=== PATIENT | female | born 2000 | race Caucasian/White ===

== ENCOUNTER → 2019-10-27 | Outpatient (REF) | payer OTHER | LOC: M SFHCLERA 12:22 | PROVIDERS: ATTEND Nurse Practitioner Family | DX: J00 Acute nasopharyngitis [common cold] (principal) ==

== ENCOUNTER → 2020-03-04 | Outpatient (CLI) | payer OTHER | LOC: M LABSMTC 08:52 | PROVIDERS: ATTEND Family Medicine | DX: Z03.818 Encounter for observation for suspected exposure to other biological agents ruled out (principal); Z11.59 Encounter for screening for other viral diseases ==

== ENCOUNTER → 2020-07-08 | Outpatient (REF) | payer OTHER | LOC: M LAB REF 18:05 | PROVIDERS: ATTEND Physician Assistant Medical | DX: Z32.00 Encounter for pregnancy test, result unknown (principal) ==

== ENCOUNTER 2021-03-17 15:31 | Outpatient (CLI) | payer OTHER ==
[~2021-03-17] VITALS: Ht 162.6 cm; Wt 91.0 kg
[2021-03-17 15:50] VITALS: BP 128/80
--- NOTE | 2021-03-17 16:32 | IPNPDOC ---
Text Note Date of Service The patient was seen on 03/17/21. NOTE 03/17/21 1630 hours 19 yo EDC BY US at 6.5 weeks edc 03/20/21 39.4 had contractions 10 minutes apart palpate mild . Patient gbs positive. risk gbs positive heart murmur anxiety plan monitor, pelvic exam vertex 50% effaced posterior 1-2 cm -3 station Patient not in active labor reviewed precautions keep appointment ft drum ob return if conditions change . discharged undelivered VS,Fishbone, I+O VS, oJsebone, I+O Vital Signs Date Time Temp Pulse Resp B/P (MAP) Pulse Ox O2 Delivery O2 Flow Rate FiO2 03/17/21 15:50 99.1 100 18 128/80 (96) 98 Room Air Colin Cutler MD Mar 17, 2021 16:32
[2021-03-17] MEDS ORDERED: TUMS500C PO (16:52)
[2021-03-17] MEDS ORDERED: PRENTAB9 PO (16:52)
== END 2021-03-17 16:35 | disposition home or self-care (01) ==
LOC: M LDO 15:31
PROVIDERS: ATTEND Obstetrics & Gynecology
DX: O47.1 False labor at or after 37 completed weeks of gestation (principal); Z3A.39 39 weeks gestation of pregnancy; O99.820 Streptococcus B carrier state complicating pregnancy; O99.343 Other mental disorders complicating pregnancy, third trimester; F41.9 Anxiety disorder, unspecified; O26.893 Other specified pregnancy related conditions, third trimester; R01.1 Cardiac murmur, unspecified; Z88.0 Allergy status to penicillin; Z79.899 Other long term (current) drug therapy
CPT/HCPCS: 59025; G0378; G0463

== ENCOUNTER 2021-03-17 19:30 | Inpatient (IN) | payer OTHER ==
[~2021-03-17] VITALS: Ht 162.6 cm; Wt 91.3 kg
[~2021-03-17 19:30] MED LIST: CLINDAMYCIN 900 MG in IV 1 EA IV SCH; PRENTAB9 PO; TUMS500C PO
[2021-03-17 19:54] VITALS: BP 138/82
[2021-03-17] MEDS ORDERED: LR 1,000 ML IV SCH ×2 (20:50→23:55)
[2021-03-17] MEDS ORDERED: PROMETHAZINE INJ 25 MG/ML VIAL (J2550) IV ONE (21:00)
[2021-03-17] MEDS ORDERED: BUTORPHANOL 2 MG/ML INJ (J0595) IV ONE (21:00)
[2021-03-17 21:19] VITALS: BP 118/72
[2021-03-17 21:32] LABS: HEMATOCRIT 35.2 % (36.0-47.0); HEMOGLOBIN 11.7 g/dl (12.0-15.5); MEAN CORPUSCULAR HEMOGLOBIN 28.5 pg (27.0-33.0); MEAN CORPUSCULAR HGB CONC 33.2 g/dl (32.0-36.5); MEAN CORPUSCULAR VOLUME 85.9 fl (80.0-96.0); PLATELET COUNT, AUTOMATED 317 10^3/uL (150-450); WHITE BLOOD COUNT 14.3 10^3/uL (4.0-10.0)
[2021-03-17] MEDS ORDERED: LACTATED RINGER'S 1000 ML IV ONE (23:55)
[2021-03-18] VITALS (37 sets, daily range): BP systolic 97–135; BP diastolic 59–84
--- NOTE | 2021-03-18 01:08 | HPEPDOC ---
Obstetrical History & Physical General Date of Admission Primary Care Physician: Colin Cutler MD History of Present Illness CONTRACTIONS Q 4 MINUTES MODERATE INTENSITY NO VAGINAL LOSS NO BLEEDING Chief Complaint: Contractions, term Information Provided By: Patient Age: 20 : 1 Term: 0 Pre-term: 0 Abortions: 0 Livin Care Care: Good Care Number of Visits: 8 Dating Final EDC: Mar 20, 2021 Final EDC for Daily Update: Mar 20, 2021 Final EDC by: LMP LMP: Jun 13, 2020 1st Trimester Date: Jul 31, 2020 Weeks + Days: 6.5 Estimated Date of Confinement: Mar 20, 2021 EGA at Admission: 39.3 Antepartum Course Diagnos(e)s CONTRACTIONS MODERATE INTENSITY. 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 BREAST: . ABDOMEN: Gravid and non-tender to touch. FETUS: Is vertex (VTX) by sterile vaginal examination (SVE), fetus is vertex (VTX) by Yonathan. HEART RATE: Regular rate and rhythm. LUNGS: Clear to auscultation (CTA). EXTREMITIES: No edema. No clonus. Deep tendon reflexes (DTRs) + . Other physical findings NORMOCEPHALIC CHEST CLEAR BILATERAL NO WHEEZES NO RHONCHI HEART REGULAR RHYTHM NO MURMUR NO DYSPNEA NO ORTHOPNEA NO SOB. NO RASHES LESIONS PARIETIS NO ARTHRALGIA MYALGIA NO JOINT PAIN NO URGENCY INCONTINENCE FREQUENCY NO DIARRHEA CONSTIPATION Vital Signs/I&O Vital Signs Date Time Temp Pulse Resp B/P (MAP) Pulse Ox O2 Delivery O2 Flow Rate FiO2 03/17/21 21:19 78 118/72 (87) 03/17/21 21:04 18 Laboratory Data 24H LABS Laboratory Tests 2 03/17/21 20:16: Nucleated Red Blood Cells % (auto) 0.0 CBC/BMP Laboratory Tests 03/17/21 20:16 Pertinent Laboratoy Data Blood Type: O+ RBC Antibody Screen: Negative HIV: Negative Hepatitis B: Negative Rapid Plasma Reagin: Nonreactive Rubella: Immune Varicella: Immune Chlamydia/Gonorrhea: Negative Group B Streptococcus: Positive (URINE) Cystic Fibrosis: Negative Anatomy Ultrasound Ultrasound Date: January 02, 2021 Placenta Location: Anterior Normal Anatomy: Yes Estimated Weight (grams): 1232 Other Ultrasounds BILATERAL HYDRONEPHROSIS EVALUATE KIDNEYS AFTER DELIVERY Steroid Therapy Steroid Therapy: No Vaginal Examination Dilation: 2cm Effacement: 60% Station: -3 Cervical Consistency: Soft Cervical Position: Posterior Presentation: Cephalic presentation Assessment Heart Rate (FHR): 140 Variability: Moderate Accelerations: Positive Decelerations: None Tocometer Contractions: Yes Frequency: regular, every 1-5 min. Duration: less than 60 seconds Strength: palpated as moderate Assessment/Plan Assessment 20 year-old (G1 para (P 0 at 39.4 weeks by 6.5 -week ultrasound. Presents to Labor and Delivery (L&D) . Plan Admit and orient. 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 Diet: CLEAR FLUIDS Group B Streptococcus (GBS) POSITIVE ANTIBIOTICS STARTED . Labs and intravenous (IV) per unit protocol. Counseled on Pitocin FOR AUGMENTATION Lactated Ringers (LR): Bolus 800 PRE EPIDURAL mL, then at 125 mL/hr. Anticipate [normal spontaneous delivery ()]. C-S as appropriate. Labor and Delivery Counseling REVIEWED PLAN OF CARE WHEN APPROPRIATE EPIDURAL ANTIBIOTICS FOR GBS STARTED REASSESSMENT IN 4 HOURS . REVIEWED DELIVERY COUNSELING . DELIVERY ANTICIPATED THROUGH VAGINA WITH POSSIBLE ASSISTANCE FORCEPS OR VACUUM DEVICES NEEDED FOR MATERNAL OR INDICATIONS. THESE DEVICES CAN ASSIST FOR VAGINAL DELIVERY WHEN PUSHING IS INEFFECTIVE AND CANNOT ACHIEVE DELIVERY ON OWN. ALSO IN EMERGENCY CONDITIONS WHEN BABY NEEDS IMMEDIATE DELIVERY. MEDICATIONS NEEDED TO AUGMENT LABOR MAY BE USED AN EPISIOTOMY MAY BE REQUIRED TO ACHIEVE VAGINAL DELIVERY THESE WILL BE REPAIRED ALSO REPAIR TO OTHER LACERATIONS TO CERVIX SPHINCTER BLADDER OR BOWEL. IN CASES WHERE EMERGENCY IS NEEDED FOR OR MATERNAL INDICATIONS PROVIDER WILL EXPLAIN AND IF TIME HAVE YOU SIGN CONSENT. SOME CASES IS SAFER FOR BABY AND MOTHER. RISK OF VAGINAL DELIVERY INCLUDE HEMORRHAGE INFECTION PERFORATION EMERGENCY BLOOD TR ANSFUSION REMOTE HYSTERECTOMY OR LIFE THREATENING BLEEDING . USE OF MEDICATION INCREASE RISK OF UTERINE RUPTURE HEMORRHAGE HEART RATE ABNORMALITIES TACHYSYSTOLE . USE OF VACUUM OR FORCEPS INCREASE RISK OF BRUISING HEMATOMA SCRATCHES INTRACRANIAL BLEED. EXPRESSED UNDERSTANDING 20 MINUTE DISCUSSION SAFE TO PROCEED Colin Cutler MD Mar 18, 2021 01:08
[2021-03-18] MEDS ORDERED: FENTANYL 2MCG/ML ROPIVACAINE 0.2% IN 0.9% NACL 100ML IVBAG As Ordered ONE (01:23)
[2021-03-18] MEDS ORDERED: NALOXONE INJ 0.4MG/1ML VIAL (J2310 PER 1MG) IV PRN (02:55)
[2021-03-18] MEDS ORDERED: diphenhydrAMINE 50MG/ML VIAL (J1200) IV PRN (02:55)
[2021-03-18] MEDS ORDERED: EPIDURAL COMMENT XX SCH (02:55)
[2021-03-18] MEDS ORDERED: FENTANYL/ROPIVACAINE/NACL BAG 100 ML EPIDURAL SCH (02:55)
[2021-03-18] MEDS ORDERED: REFRIGERATOR IV KEYS XX PRN (02:55)
[2021-03-18] MEDS ORDERED: LACTATED RINGER'S 1000 ML IV PRN (02:55)
[2021-03-18] MEDS ORDERED: ONDANSETRON 4MG/2ML VIAL IV PRN (02:55)
[2021-03-18] MEDS ORDERED: EPIDURAL/PCA KEYS XX PRN (02:55)
[2021-03-18] MEDS ORDERED: ePHEDrine SULFATE 25 MG/5 ML(5MG/ML) SYRINGE IV PRN (02:55)
--- NOTE | 2021-03-18 04:49 | IPNPDOC ---
Text Note Date of Service The patient was seen on 03/18/21. NOTE Vital Signs Label Value Date Time Blood Pressure Assessment 118/72 (87) 03/17/212118 Source Automatic Cuff (NIBP) Pulse 78 03/17/212118 Respiratory Rate 18 bpm 03/17/212103 Blood Pressure Assessment 138/82 (100) 03/17/211953 Source Automatic Cuff (NIBP) Pulse 106 03/17/21195303/18/21 0445 am review progress post epidural. category 1 strip with occasional category 2 strip moderate variability presently. contractions q 6 minutes pelvic examination cervix stretchy 5-6 cm mid position -3 station. 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 Safe to proceed VS,Fredi, I+O VS, Fredi, I+O Laboratory Tests 03/17/21 20:16 Vital Signs Date Time Temp Pulse Resp B/P (MAP) Pulse Ox O2 Delivery O2 Flow Rate FiO2 03/17/21 21:19 78 118/72 (87) 03/17/21 21:04 18 Colin Cutler MD Mar 18, 2021 04:49
[2021-03-18] MEDS ORDERED: OXYTOCIN DRIP 30 UNITS in IV 1 EA IV SCH ×2 (04:55→13:00)
[2021-03-18] MEDS ORDERED: OXYTOCIN INJ 10 UNITS/ML VIAL (J2590) As Ordered ONE (09:03)
[2021-03-18 12:17] LABS: CORD GAS ABE A -14.7; CORD GAS ABE V -10.9; CORD GAS HCO3 A 17.4 MEQ/L; CORD GAS HCO3 V 15.7 MEQ/L; CORD GAS O2 SAT A 31.4 %; CORD GAS O2 SAT V 76.8 %; CORD GAS PCO2 A 74.3 mmHg; CORD GAS PCO2 V 37.7 mmHg; CORD GAS PH V 7.238 UNITS; CORD GAS PO2 A 23.2 mmHg; CORD GAS PO2 V 37.7 mmHg; CORD GAS SBC A 12.1 MEQ/L; CORD GAS SBC V 15.7 MEQ/L; CORD GAS TCO2 A 19.7 MEQ/L; CORD GAS TCO2 V 16.9 MEQ/L
[2021-03-18 12:18] LABS: CORD GAS PH A 6.988 UNITS
[2021-03-18] MEDS ORDERED: MEASLES,MUMPS,RUBELLA VACCINE INJ (MMR-II) (90707) SC SCH (12:35)
[2021-03-18] MEDS ORDERED: DOCUSATE SODIUM 100MG CAPSULE PO PRN (12:35)
[2021-03-18] MEDS ORDERED: LR 1,000 ML IV SCH (12:35)
[2021-03-18] MEDS ORDERED: DIBUCAINE 1% OINTMENT 30GM TOP PRN (12:35)
[2021-03-18] MEDS ORDERED: METHYLERGONOVINE MALEATE 0.2 MG TAB PO PRN (12:35)
[2021-03-18] MEDS ORDERED: ACETAMINOPHEN TAB 650MG DOSE (2X325MG) PO PRN (12:35)
[2021-03-18] MEDS ORDERED: OXYTOCIN 30 UNITS IN 0.9% NaCl 500ML IV BAG (J2590) As Ordered ONE (12:35)
[2021-03-18] MEDS ORDERED: RHOGAM 300 MCG (1500 IU) INJ (J2790) IM SCH (12:35)
[2021-03-18] MEDS ORDERED: ANUSOL HC CREAM 30GM TOP PRN (12:35)
[2021-03-18] MEDS ORDERED: MOM 30ML SUSPENSION UDC PO PRN (12:35)
[2021-03-18] MEDS: ACETAMINOPHEN 500 MG TAB PO PRN ×2 (13:37→20:04)
[2021-03-18] MEDS: IBUPROFEN 600MG TAB PO PRN ×2 (13:38→20:04)
--- NOTE | 2021-03-18 21:56 | IPN ---
PROGRESS NOTE DATE: 03/18/2021 SUBJECTIVE: This patient requested circumcision of her male infant. After discussing risks and benefits of circumcision, the medical, the nonmedical indications, the penile block and aftercare, expressed understanding of penile block, aftercare and bleeding, signed the consent form. All questions were answered, 20-minute discussion. We await clearance by the evaporative cooler installer.
[2021-03-19 06:00] VITALS: BP 110/66
[2021-03-19] MEDS: ACETAMINOPHEN 500 MG TAB PO PRN ×2 (06:04→19:45)
[2021-03-19 08:05] LABS: HEMATOCRIT 28.4 % (36.0-47.0); MEAN CORPUSCULAR HEMOGLOBIN 28.8 pg (27.0-33.0); MEAN CORPUSCULAR HGB CONC 32.4 g/dl (32.0-36.5); MEAN CORPUSCULAR VOLUME 88.8 fl (80.0-96.0); PLATELET COUNT, AUTOMATED 244 10^3/uL (150-450); WHITE BLOOD COUNT 14.1 10^3/uL (4.0-10.0)
[2021-03-19 08:16] LABS: HEMOGLOBIN 9.2 g/dl (12.0-15.5)
[2021-03-19] MEDS: PRENATAL VITAMINS CHEWABLE TABLET PO SCH (08:49)
--- NOTE | 2021-03-19 08:53 | IPN ---
PROGRESS NOTE DATE: 03/19/2021 SUBJECTIVE: This lady is a 20-year-old 1, now para 1, who came in in spontaneous labor. She started to spontaneously push prior to being fully dilated and in fact was pushing for two hours involuntarily before actually fully dilated. During her pushing she had a significant amount of blood loss and on digital examination at the time, she had spontaneously bilateral vaginal wall tears and tore into her left ischiorectal fossa. At final delivery, she delivered spontaneously a live male 7 pounds, 2 ounces, 3240 gm, Apgars of 5 and 8 at 1 and 5 minutes respectively. Cord around the neck times one. Terminal meconium was noted. The arterial pH was 6.98 and base excess -14.7. Venous pH was 7.23, base excess -10.9. With this involuntary pushing and rapid explosion of this baby's head, she had a labial tear on the left side, and she tore from the anterior upper portion of the labia right down to its termination at the fourchette. She had spontaneous delivery of the placenta, three vessels. Membranes and tissues intact. She had to be re-dosed in order to repair all the lacerations and tears that she had. She had also a spontaneous tear in the midline. On her first day, she still has her Little catheter in as there is still considerable swelling of the vulvovaginal area. She is breast feeding otherwise. She is proceeding well and she is coping with pain management. OBJECTIVE: Her blood pressure this morning is 110/66, respirations are 15, pulse is 93 and temperature is 97.4. Her admitting hemoglobin was 11.7, hematocrit 35.2, and platelets were 317. The day one hemoglobin is pending. The rest of the examination is unremarkable. Normocephalic, atraumatic. Neck with full range of motion. Pupils equal and reactive to light. Distal pulses are symmetric. No evidence of DVT prophylaxis, PE, or superficial phlebitis. Chest is clear bilaterally to bases. No wheezes or rhonchi. No CVA tenderness. Abdomen is soft. Four quadrant bowel sounds are noted. The perineum is healing but it is still considerably swollen. We are leaving the Little catheter in. No rashes, lesions or pruritus. No arthralgias or myalgias. No complaint of joint pain. No complaint of cough, wheeze, shortness of breath or dyspnea on exertion. No nausea, vomiting, diarrhea or constipation. No urgency or frequency. PLAN: Plans are to evaluate her perineum tomorrow, take out the Little catheter once the swelling has resolved. 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 All questions are answered, 20 minute discussion. We are awaiting clearance by the human resources coordinator for circumcision. cc: [facility]
[2021-03-19 18:07] VITALS: BP 120/79
[2021-03-19 22:00] VITALS: BP 102/63
[2021-03-20 06:00] VITALS: BP 119/76
[2021-03-20] MEDS ORDERED: IBUP-1022 PO (07:05)
[2021-03-20] MEDS ORDERED: ACET-683 PO (07:05)
[2021-03-20] MEDS ORDERED: DIBU28OI2 TOP (07:05)
--- NOTE | 2021-03-20 07:07 | DS.PDOC ---
Discharge Summary General Date of Admission Mar 18, 2021 at 00:38 Date of Discharge March 20, 2021 Discharge Summary HOSPITAL COURSE: Ms. Ramirez is a 20 yo G1 now P1 who underwent an on 18Mar2021 after being admitted for active labor. She had an extensive delivery laceration that required a large repair with significant swelling. She had a bear catheter in place for longer than typical. Ultimately it was removed and she was able to void without issues Her course was oth erwise unremarkable. On her day of discharge she met all appropriate discharge criteria. She was ambulating, voiding, tolerating a regular diet, and had minimal lochia. DISCHARGE MEDICATIONS: Please see below. ALLERGIES: Please see below. PHYSICAL EXAMINATION ON DISCHARGE: VITAL SIGNS: Please see below. GENERAL: AAOX3, NAD ABDOMINAL EXAMINATION: Fundus firm at U-2. No fundal tenderness EXTREMITIES: No edema PSYCHIATRIC EXAMINATION: Affect appropriate LABORATORY DATA: Please see below. ACTIVITY: Pelvic rest for 6 weeks DIET: Regular DISCHARGE PLAN: Discharge home DISPOSITION: Discharge home on 20Mar2021 DISCHARGE INSTRUCTIONS: 1. Nothing in the vagina for 6 weeks ITEMS TO FOLLOWUP ON ON OUTPATIENT: 1. Call to schedule a visit for 6 weeks post delivery DISCHARGE CONDITION: Stable. TIME SPENT ON DISCHARGE: Greater than 20 minutes. Servando Quiles DO Vital Signs/I&Os Vital Signs Date Time Temp Pulse Resp B/P (MAP) Pulse Ox O2 Delivery O2 Flow Rate FiO2 03/20/21 06:00 97.7 94 20 119/76 (90) 100 Room Air I&O- Last 24 Hours up to 6 AM 03/20/21 05:59 Intake Total 840 ml Output Total 1050 ml Balance -210 ml Laboratory Data Labs 24H Laboratory Tests 2 03/19/21 07:23: Nucleated Red Blood Cells % (auto) 0.0 CBC/BMP Laboratory Tests 03/19/21 07:23 Discharge Medications Scheduled No.137/Iron/Folic Acd ( Vitamin Tablet) 1 Each Tablet, 1 TAB PO DAILY, (Reported) Scheduled PRN Acetaminophen (Acetaminophen) 500 Mg Tablet, 1,000 MG PO Q6HP PRN for PAIN LEVEL 6-10 Dibucaine (Dibucaine) 28 Gm Oint...g., 0 DOSE TOP Q4H PRN for BOWEL CARE/CONSTIPATION Ibuprofen (Ibuprofen) 600 Mg Tablet, 600 MG PO Q6HP PRN for PAIN LEVEL 1-5 Miscellaneous Medications Calcium Carbonate (Tums) 200 Mg Tab.chew, 500 MG PO, (Reported) Allergies Coded Allergies: Penicillins (Verified Allergy, Intermediate, RASH BABY, 03/17/21) SERVANDO QUILES DO Mar 20, 2021 07:07
--- NOTE | 2021-03-20 09:06 | DN ---
DELIVERY NOTE DATE OF DELIVERY: 03/18/2021 TIME OF : GENDER: APGARS: LACERATIONS: ANESTHESIA: ESTIMATED BLOOD LOSS: COUNTS: DESCRIPTION OF DELIVERY: This lady is a 20-year-old 1 who has had two visits to triage because of contractions. She eventually stayed herein active labor, had an epidural in place, involuntarily started pushing two hours before delivery, and had moderate amount of bleeding. Evaluation indicated that she has bilateral vaginal sidewall tears and tear into the ischiorectal fossa. Uncontrollably, she continued to push despite adequate counseling and she did a spontaneous delivery of a male infant weighing 3240 grams, 7 pounds 2 ounces. Apgars of 5 and 8 at one and five minutes respectively; cord around one time that had terminal meconium. Arterial pH 6.98, base excess -14.7, venous pH 7.23, base excess -10.9. The placenta delivered spontaneously thereafter. Three vessels and the cord membranes and tissues intact. Examination/evaluation showed bilateral vaginal sidewall tears deep into the ischiorectal fossa on the left side; a right labial tear from the upper portion right down to the lower portion of the vulva which incorporates into the perineum. She had an extended midline tear as well. Sphincter was tight and the capsule was intact, and the mucosa was intact. Required to have anesthesia re-doser for pain control and despite that, she still complained of pain. We repaired the bilateral vaginal wall tears with 2-0 Vicryl on J339. We repaired the midline tear in a similar fashion bringing the perineal body together. Then, with a 3-0 on an SH needle repaired the labia, which was lacerated. Extreme swelling was noted. Little catheter remained in. the patient was given ice diaper. The uterus contracted well down with Pitocin. The patient and baby tolerated the procedure well. [facility]
[2021-03-20] MEDS: PRENATAL VITAMINS CHEWABLE TABLET PO SCH (09:19)
== END 2021-03-20 18:00 | disposition home or self-care (01) | DRG 768 ==
LOC: M LDO 19:30 → M LDI 03-18 00:38 → M OBS 03-18 15:22
PROVIDERS: ADMIT Obstetrics & Gynecology; ATTEND Obstetrics & Gynecology
PROC: 0DQP0ZZ Repair Rectum, Open Approach (ICD-10-PCS; principal; 2021-03-18)
PROC: 10E0XZZ Delivery of Products of Conception, External Approach (ICD-10-PCS; 2021-03-18)
DX: O99.824 Streptococcus B carrier state complicating childbirth (principal); Z37.0 Single live birth; Z3A.39 39 weeks gestation of pregnancy; Z88.0 Allergy status to penicillin; O70.3 Fourth degree perineal laceration during delivery

== ENCOUNTER 2021-04-09 14:03 | Emergency (ER) | payer OTHER ==
[~2021-04-09] VITALS: Ht 162.6 cm; Wt 79.5 kg
[~2021-04-09 14:03] MED LIST changes: +ACET-683 PO; -CLINDAMYCIN 900 MG in IV 1 EA IV SCH; +DIBU28OI2 TOP; +IBUP-1022 PO
[2021-04-09] MEDS ORDERED: CLIN300C6 (14:30)
[2021-04-09 16:38] VITALS: BP 112/70
--- NOTE | 2021-04-09 16:44 | CR.PDOC ---
General Date of Consultation: Apr 09, 2021 Consultation REASON FOR CONSULTATION/CHIEF COMPLAINT: Recurrent mastitis. HISTORY OF PRESENT ILLNESS: 20yo female from approximately 3 week s ago presenting to ER for home temp of 100.8 and continued breast pain/tenderness. Pt was initially evaluated by me in clinic 2 weeks ago with mastitis of the R breast and was treated with keflex QID x10 days. At her follow up visit last week, she was noted to have complete resolution of symptoms and was requesting to D/C antibiotics (had completed 7/10 day course). She called the triage nurse on Fri, Mar stating she was having continued breast pain and chills, but denied fever or erythema. She was unable to present to clinic at that time due to childcare issues, therefore decision made to restart antibiotics with different regimen of clindamycin q8hrs [id number] and close follow up. Pt was instructed to monitor for fevers and present if temp >100.4. Pt states today she developed a temp of 100.8 and decided to come in for further evaluation. She reports persistent bilateral breast tenderness with only mild relief using warm compresses. States she continues to pump every 2-3 hrs, and reports compliance with her antibiotics. Denies any erythema or nodularity. She is otherwise without complaint. ALLERGIES: PCN (rash). Tolerates cephalosporins HOME MEDICATIONS: PNV, clindamycin (day 4) PAST MEDICAL HISTORY: unremarkable PAST SURGICAL HISTORY: unremarkable FAMILY HISTORY: unremarkable REVIEW OF SYSTEMS: CONSTITUTIONAL: See HPI. HEENT: denies CARDIOVASCULAR: tachycardic, resolved shortly after arrival RESPIRATORY: denies dyspnea GENITOURINARY: denies dysuria, hematuria MUSCULOSKELETAL: denies GASTROINTESTINAL: denies N/V, diarrhea or constipation SKIN: see HPI - concern for mastitis NEUROLOGICAL: denies BOGGS, vision changes PSYCHIATRIC: denies HI/SI ENDOCRINE: denies HEMATOLOGIC/LYMPHATIC: denies. ALLERGIC/IMMUNOLOGIC: denies PHYSICAL EXAMINATION: VITAL SIGNS: tachycardic in 150's on arrival. Improved to 90's on my evaluation GENERAL APPEARANCE: AAO x3, NAD RESPIRATORY: Normal work of breathing. CARDIOVASCULAR: tachycardia on initial presentation, improved on my evaluation BREAST EXAM: Normal appearing breasts bilaterally. No erythema or induration noted. Pt tender to palpation, states she is due to pump again at this time. No masses or nodularity on palpation. Milk culture collected. PSYCHIATRIC: Normal mood/affect. LABORATORY DATA: Labs ordered however not yet drawn. Pt overall well appearing and has follow up scheduled in clinic tomorrow. Will defer for now ASSESSMENT/PLAN: 1. Bilateral breast engorgement - at this time, low concern for persistent mastitis. Prior erythema from initial evaluation in clinic is completely resolved. No masses or induration. Milk culture collected today. Labs ordered, however given patient is overall well appearing at this time and she is due to pump, states she would prefer to go home and follow up in clinic. Patient encouraged to continue with frequent pumping, warm compresses and massage. She is considering supplementation with formula at this time. Pt instructed to try cabbage leaves for relief as well. All questions answered and she has follow up later this week. Vital Signs/I&O Vital Signs Date Time Temp Pulse Resp B/P (MAP) Pulse Ox O2 Delivery O2 Flow Rate FiO2 04/09/21 14:03 99.7 151 20 114/74 (87) 98 Room Air Laboratory Data Microbiology Microbiology 04/09/21 Gram Stain, Received Pending 04/09/21 Body Fluid Culture, Received Pending Allergies Coded Allergies: Penicillins (Verified Allergy, Intermediate, RASH BABY, 03/17/21) Home Medications Scheduled No.137/Iron/Folic Acd ( Vitamin Tablet) 1 Each Tablet, 1 TAB PO DAILY, (Reported) Scheduled PRN Acetaminophen (Acetaminophen) 500 Mg Tablet, 1,000 MG PO Q6HP PRN for PAIN LEVEL 6-10 for 30 Days Dibucaine (Dibucaine) 28 Gm Oint...g., 0 DOSE TOP Q4H PRN for BOWEL CARE/CONSTIPATION for 30 Days Ibuprofen (Ibuprofen) 600 Mg Tablet, 600 MG PO Q6HP PRN for PAIN LEVEL 1-5 for 30 Days Miscellaneous Medications Calcium Carbonate (Tums) 200 Mg Tab.chew, 500 MG PO, (Reported) Clindamycin HCl (Clindamycin HCl) 300 Mg Capsule, (Reported) TRAMAINE VILLAGOMEZ M.D. Apr 09, 2021 16:43
== END 2021-04-09 16:36 | disposition home or self-care (01) ==
LOC: M ED 14:03
DX: N61.0 Mastitis without abscess (principal); Z88.0 Allergy status to penicillin; Z87.2 Personal history of diseases of the skin and subcutaneous tissue